=== PATIENT | male | born 1940 | race Caucasian/White ===

== ENCOUNTER 2024-08-09 12:59 | Outpatient (AMB) | payer MEDICARE, OTHER, SELFPAY ==
--- NOTE | 2024-08-09 13:05 | MHC.OFFVIS ---
Intake Visit Reasons: urinary frequency/ history of kidney stones Intake Note: New patient Presents for Urinary Frequency/Hx of kidney stones Any Urology Medication: Has tried Tamsulosin in the past Antibiotic Allergies: None Blood Thinners: Aspirin PVR:50ml Staking Press Operator Required: No Accompanied by: Self / Same As Patient Allergies No Known Allergies Allergy (Verified 08/09/24 13:56) Medication List - Last Reconciled 08/09/24 by MASSIMO Del Toro aspirin (Adult Aspirin Regimen) 81 mg PO DAILY metoprolol tartrate 25 mg PO DAILY nifedipine ER mg PO DAILY propranolol ER mg PO DAILY rosuvastatin mg PO valsartan mg PO DAILY HPI Comments Details: Festus is a 84-year-old male patient of Dr. Calvillo. He has a past medical history of nephrolithiasis, hyperlipidemia, hypertension, paroxysmal AFib, and dilatation of aorta. In discussion with the patient today he reports a longstanding history of nephrolithiasis since the age of 18. He discusses having had surgical intervention involving his kidney many years ago. He reports this being his right kidney. He discusses following up with his PCP and discussing intermittent ongoing lower urinary tract symptoms he has been experiencing at which time recommendations were made for urology referral for further assessment evaluation. Patient discusses noting bothersome urinary issues prior to his compliance with his CPAP. We discussed at length correlation of sleep apnea and lower urinary tract symptoms. He does report noting urinary dribbling. He does feel lower urinary tract symptoms have improved since he has been compliant with his CPAP machine. We discussed at length potential causes for lower urinary tract symptoms patient was experiencing as well as further treatment options and risks and benefits of these treatment options. In office urinalysis results reviewed with the patient today. PVR 50 mL. He denies hematuria, dysuria, foul smelling urine, flank pain, fever, and or chills. [facility] Medical History (Updated 08/09/24 @ 13:56 by MASSIMO Del Toro) History of kidney stones Mixed hyperlipidemia HTN (hypertension) Paroxysmal A-fib Dilatation of aorta Review of Systems Const Reports no additional complaints Eyes Reports no additional complaints ENT Reports no additional complaints Card Reports as per HPI Resp Reports no additional complaints GI Reports no additional complaints Reports as per HPI Musc Reports no additional complaints Neuro Reports no additional complaints Psych Reports no additional complaints Endo Reports no additional complaints Arie/Lymph Reports no additional complaints Aller/Immun Reports no additional complaints Physical Exam Const General: cooperative, healthy appearing, comfortable, no acute distress, well developed, alert and awake Orientation/consciousness: patient oriented x3 Limitations: no limitations HEENT Head: Yes normal to inspection, Yes normocephalic and Yes atraumatic Ears: hearing grossly normal bilaterally Eyes General: appearance normal, both eyes and all related structures Neck Neck: Yes normal visual inspection and Yes trachea midline Chest Chest palpation & inspection: normal inspection of the chest Resp Effort & Inspection: normal respiratory effort and able to speak in complete sentences Cardio Rate: regular rate GI Inspection: Yes normal to inspection General: Yes no CVA tenderness Back/Spine/Pelvis Back: no CVA tenderness Skin General skin exam: no rashes or lesions noted Neuro General: patient oriented x3 Extrem General: Yes normal to inspection Psych Appearance: grossly normal and well kempt Mental Status: mental status grossly normal Speech and movement: Normal speech and movement present and Clear speech present Affect: normal affect Attitude: cooperative Thought process: Normal thought process present Thought content: Normal thought content present Insight: Fair insight present (Psych) Judgement: Fair judgement present (Psych) Office Procedures Post Void Residual Post Residual Void Post Void Residual (PVR): 50 [id number]-Govx Void Residual by ultrasound Results AMB Urinalysis, Automated UA Leukoctes 0 Corbin/uL Last Edit by KAYODE Peter on 08/09/24 13:37 UA Nitrite Negative Last Edit by KAYODE Peter on 08/09/24 13:37 UA Urobilinogen 0.2 mg/dL Last Edit by KAYODE Peter on 08/09/24 13:37 UA Protein 15 mg/dL Last Edit by Ela Hare Travis on 08/09/24 13:37 UA pH 6.5 Last Edit by KAYODE Peter on 08/09/24 13:37 UA Blood 0 Braxton/uL Last Edit by KAYODE Peter on 08/09/24 13:37 UA Specific [place] 1.015 Last Edit by KAYODE Peter on 08/09/24 13:37 UA Ketone Negative Last Edit by KAYODE Peter on 08/09/24 13:37 UA Bilirubin 0 mg/dL Last Edit by KAYODE Peter on 08/09/24 13:37 UA Glucose 0 mg/dL Last Edit by KAYODE Peter on 08/09/24 13:37 Results Reviewed Results Reviewed: Laboratory Last Values Urine pH (Auto) 6.5 08/09/24 13:36 Specific [place] (Auto) 1.015 08/09/24 13:36 Urine Protein (Auto) 15 mg/dL 08/09/24 13:36 Glucose (UA)(Auto) 0 mg/dL 08/09/24 13:36 Urine Ketones (Auto) Negative 08/09/24 13:36 Urine Blood (Auto) 0 Braxton/uL 08/09/24 13:36 Urine Nitrite (Auto) Negative 08/09/24 13:36 Urine Bilirubin (Auto) 0 mg/dL 08/09/24 13:36 Urine Urobilinogen (Auto) 0.2 mg/dL 08/09/24 13:36 Leukocyte Esterase (Auto) 0 Corbin/uL 08/09/24 13:36 Assessment & Plan Assessment & Plan (1) Urinary dribbling: Code(s): N39.43 - Post-void dribbling Category: Medical (2) Urinary frequency: Code(s): R35.0 - Frequency of micturition Category: Medical (3) Nephrolithiasis: Code(s): N20.0 - Calculus of kidney Category: Medical Plan In office urinalysis results reviewed with the patient today; as noted above. PVR 50 mL. We discussed obtaining retroperitoneal ultrasound for further assessment evaluation. We discussed potential near future in office cystoscopy and or urodynamics for further assessment evaluation. We discussed at length potential causes for lower urinary tract symptoms patient was experiencing as well as further treatment options and risks and benefits of these treatment options. Will obtain PSA for further assessment evaluation. ARTI offered however deferred. Information provided for pelvic floor exercises to assist with urinary dribbling We discussed importance of adequate hydration relation to nephrolithiasis as well as overall health and well-being. Follow-up in 1-3 months with imaging and labs to be completed prior PVR at next office visit; or sooner with any issues, concerns, and or questions. Orders: Orders AMB Urinalysis Automated Today Z13.9 - Encounter for screening, unspecified AMB Post Void Residual by ultrasound Today Z87.898 - Personal history of other specified conditions US retroperitoneal comp Today N20.0 - Calculus of kidney, N39.43 - Post-void dribbling, R35.0 - Frequency of micturition Prostate Specific Antigen Today N40.0 - Benign prostatic hyperplasia without lower urinary tract symptoms Patient Instructions: The patient had an opportunity to ask questions regarding the treatment plan. All questions were answered. Physical exam, labs, and imaging were discussed and reviewed in detail. As well as risks, benefits, and discussion of treatment choices. No major barriers to understanding were identified. The patient expressed understanding and agreement with the above treatment plan. The patient was made aware they should contact our office by phone for worsening of their current condition, the appearance of new symptoms, or with any questions or concerns. Compliance is encouraged with any medications and follow up testing that is ordered. It is a privilege to be allowed the opportunity to participate in? your urological care.? Again, if you have any questions or concerns If you have any questions or concerns please do not hesitate to contact me. The office is [phone]. This note is constructed using voice recognition software. While every effort has been made to ensure accuracy drafter civil engineering errors may have been included. Yours sincerely, PETER Del Toro-SUSAN Coding Level of Care Code New Pt Level 3 (85473) Diagnoses Urinary dribbling N39.43 Urinary frequency R35.0 Nephrolithiasis N20.0 CPT Codes Post Residual Void - PVR CPT Code: 22994-Vivs Void Residual by ultrasound ([id number])
== END 2024-08-09 13:54 | disposition home or self-care (01) ==
LOC: HO.HUSH 12:59
PROVIDERS: PCP Family Medicine; Visit Provider Nurse Practitioner Family
DX: N39.43 Post-void dribbling (principal); R35.0 Frequency of micturition; N20.0 Calculus of kidney; Z13.9 Encounter for screening, unspecified
CPT/HCPCS: 99203

== ENCOUNTER → 2024-08-09 12:59 | Outpatient (BNVA) | payer MEDICARE, OTHER, SELFPAY | PROVIDERS: PCP Family Medicine; Visit Provider Nurse Practitioner Family | DX: N40.1 Benign prostatic hyperplasia with lower urinary tract symptoms (principal); N39.43 Post-void dribbling; R35.0 Frequency of micturition; N20.0 Calculus of kidney; G47.30 Sleep apnea, unspecified; Z99.89 Dependence on other enabling machines and devices; Z87.898 Personal history of other specified conditions | CPT/HCPCS: 51798; 81003; 99202 ==

== ENCOUNTER 2024-11-09 13:40 | Outpatient (AMB) | payer MEDICARE, OTHER, SELFPAY ==
--- NOTE | 2024-11-09 13:41 | MHC.OFFVIS ---
Intake Visit Reasons: 3 month follow up/ PSA/ US Intake Note: Patient Presents today for follow up on: Urinary dribbling, frequency, nephrolithiasis, ultrasound and lab results Imaging Completed: 09/27/24 PSA: 2.23 Urology Medication: none Antibiotic Allergies: None Blood Thinners: Aspirin PVR:33ml's Blender Machine Operator Required: No Accompanied by: Self / Same As Patient Allergies No Known Allergies Allergy (Verified 11/09/24 21:41) Medication List - Last Reconciled 11/09/24 by PETER Del Toro- aspirin (Adult Aspirin Regimen) 81 mg PO DAILY metoprolol tartrate 25 mg PO DAILY nifedipine ER mg PO DAILY propranolol ER mg PO DAILY rosuvastatin mg PO valsartan mg PO DAILY HPI Comments Details: Festus is a 84-year-old male patient of Dr. Calvillo. He has a past medical history of nephrolithiasis, hyperlipidemia, hypertension, paroxysmal AFib, and dilatation of aorta. He presents to the office today for follow-up. Of note, patient was seen approximately 3 months ago as a new patient for longstanding history of nephrolithiasis since the age of [age] years old at which time a renal ultrasound was ordered for further assessment evaluation. These results were reviewed and communicated with the patient today. 10/10 right kidney with multiple large stones largest stone or cluster of stones measuring 1.4 cm in the mid pole. There are 2 smaller stones measuring 9 mm in the lower pole in 6 mm in the mid pole 1.3 simple cyst in the lower pole. No renal masses or hydronephrosis noted on the right side. Left kidney with 2 cysts measuring 10 mm in the upper pole and 8 mm in the mid pole. No renal stones or hydronephrosis noted in the left kidney per radiology report. PSA 10/10 2.2. He discusses at length his longstanding history of nephrolithiasis requiring major surgery at the age of 18. We discussed surgical intervention versus surveillance monitoring given increase in stone burden. Risks and benefits of these interventions were discussed. Patient does report previously experiencing increased episodes of nocturia however since he has been compliant with CPAP he does feel improvement in nocturia. He does report noting urinary frequency stating he typically urinates 7-12 times per day. We discussed further treatment options and risks and benefits of these treatment options. In office urinalysis results reviewed with the patient today. PVR 33 mL. He denies hematuria, dysuria, foul smelling urine, flank pain, fever, and or chills. Discussion Notes I discussed with the patient the current state of his nephrolithiasis, noting the presence of large kidney stones in the right kidney and simple cysts on both kidneys. We evaluated management options, emphasizing the choices between ureteroscopy and extracorporeal shock wave lithotripsy for stone removal. I explained the risks and benefits of each, highlighting the less invasive nature of lithotripsy but acknowledging potential need for multiple treatments and the comprehensive nature of ureteroscopy. We agreed on continued observation of the stones given the patient's preference and current symptomatology. I also addressed the nocturia and frequent urination, suggesting trial dietary modifications and discussing the use of tamsulosin, given its prior benefit. Finally, I advised a future CT scan to better assess stone characteristics if intervention becomes necessary. Plan We will continue to monitor the patient's right kidney stones given their history of nephrolithiasis and current absence of symptoms, with a standing order for a CT scan if intervention becomes necessary. Treatment options for stone removal have been discussed comprehensively, and we will reassess if any changes in symptoms occur. For his urinary frequency and nocturia, dietary modifications will be trialed to reduce intake of caffeine, alcohol, spicy foods, tomato based products, and carbonated beverages. The use of tamsulosin may be revisited if conservative measures prove ineffective. Patient was informed about the impact of untreated sleep apnea on nocturnal urinary frequency and encouraged to adhere to CPAP therapy. Next follow-up is scheduled for a year unless the patient develops concerning symptoms warranting earlier evaluation. [facility] Medical History History of kidney stones Mixed hyperlipidemia HTN (hypertension) Paroxysmal A-fib Dilatation of aorta Review of Systems Const Reports no additional complaints Eyes Reports no additional complaints ENT Reports no additional complaints Card Reports as per HPI Resp Reports no additional complaints GI Reports no additional complaints Reports as per HPI Musc Reports no additional complaints Neuro Reports no additional complaints Psych Reports no additional complaints Endo Reports no additional complaints Arie/Lymph Reports no additional complaints Aller/Immun Reports no additional complaints Physical Exam Const General: cooperative, healthy appearing, comfortable, no acute distress, well developed, alert and awake Orientation/consciousness: patient oriented x3 Limitations: no limitations HEENT Head: Yes normal to inspection, Yes normocephalic and Yes atraumatic Ears: hearing grossly normal bilaterally Eyes General: appearance normal, both eyes and all related structures Neck Neck: Yes normal visual inspection and Yes trachea midline Chest Chest palpation & inspection: normal inspection of the chest Resp Effort & Inspection: normal respiratory effort and able to speak in complete sentences Cardio Rate: regular rate GI Inspection: Yes normal to inspection General: Yes no CVA tenderness Back/Spine/Pelvis Back: no CVA tenderness Skin General skin exam: no rashes or lesions noted Neuro General: patient oriented x3 Extrem General: Yes normal to inspection Psych Appearance: grossly normal and well kempt Mental Status: mental status grossly normal Speech and movement: Normal speech and movement present and Clear speech present Affect: normal affect Attitude: cooperative Thought process: Normal thought process present Thought content: Normal thought content present Insight: Fair insight present (Psych) Judgement: Fair judgement present (Psych) Office Procedures Post Void Residual Post Residual Void Post Void Residual (PVR): 33 [id number] Void Residual by ultrasound Results AMB Urinalysis, Automated UA Leukoctes 15 Corbin/uL Last Edit by [employer] on 11/09/24 14:12 UA Nitrite Last Edit by [employer] on 11/09/24 14:12 UA Urobilinogen 0.2 mg/dL Last Edit by [employer] on 11/09/24 14:12 UA Protein 15 mg/dL Last Edit by [employer] on 11/09/24 14:12 UA pH 6.5 Last Edit by [employer] on 11/09/24 14:12 UA Blood 10 Braxton/uL Last Edit by [employer] on 11/09/24 14:12 UA Specific [place] 1.010 Last Edit by [employer] on 11/09/24 14:12 UA Ketone Negative Last Edit by [employer] on 11/09/24 14:12 UA Bilirubin 0 mg/dL Last Edit by [employer] on 11/09/24 14:12 UA Glucose 0 mg/dL Last Edit by [employer] on 11/09/24 14:12 Results Reviewed Results Reviewed: Laboratory Last Values Urine pH (Auto) 6.5 11/09/24 14:08 Specific [place] (Auto) 1.010 11/09/24 14:08 Urine Protein (Auto) 15 mg/dL 11/09/24 14:08 Glucose (UA)(Auto) 0 mg/dL 11/09/24 14:08 Urine Ketones (Auto) Negative 11/09/24 14:08 Urine Blood (Auto) 10 Braxton/uL 11/09/24 14:08 Urine Bilirubin (Auto) 0 mg/dL 11/09/24 14:08 Urine Urobilinogen (Auto) 0.2 mg/dL 11/09/24 14:08 Leukocyte Esterase (Auto) 15 Corbin/uL 11/09/24 14:08 Assessment & Plan Assessment & Plan (1) Nephrolithiasis: Code(s): N20.0 - Calculus of kidney Category: Medical (2) Urinary dribbling: Code(s): N39.43 - Post-void dribbling Category: Medical (3) Urinary frequency: Code(s): R35.0 - Frequency of micturition Category: Medical Plan In office urinalysis results reviewed with the patient today; as noted above. PVR 33 mLs. Recent renal imaging results reviewed with the patient today; as noted above. Recent PSA results reviewed with the patient today; as noted above. We discussed further surgical intervention regarding increase in stone burden on right side we discussed obtaining CT KUB for further assessment evaluation We discussed ureteroscopy verses ESWL verses surveillance monitoring; risks and benefits of these interventions were discussed at length All questions were answered. We discussed bladder triggers/irritants. We discussed importance of pelvic floor exercises to assist with urinary dribbling. Will obtain CT KUB 1 year. Will obtain PSA in 1 year. Follow-up in 1 year with imaging, PSA, and PVR; or sooner with any issues, concerns, and or questions. Orders: Orders CT kidney stone 1 Year N20.0 - Calculus of kidney AMB Urinalysis Automated Today Z13.9 - Encounter for screening, unspecified AMB Post Void Residual by ultrasound Today N39.43 - Post-void dribbling Prostate Specific Antigen 1 Year N39.43 - Post-void dribbling, R35.0 - Frequency of micturition Patient Instructions: The patient had an opportunity to ask questions regarding the treatment plan. All questions were answered. Physical exam, labs, and imaging were discussed and reviewed in detail. As well as risks, benefits, and discussion of treatment choices. No major barriers to understanding were identified. The patient expressed understanding and agreement with the above treatment plan. The patient was made aware they should contact our office by phone for worsening of their current condition, the appearance of new symptoms, or with any questions or concerns. Compliance is encouraged with any medications and follow up testing that is ordered. It is a privilege to be allowed the opportunity to participate in? your urological care.? Again, if you have any questions or concerns If you have any questions or concerns please do not hesitate to contact me. The office is [phone]. This note is constructed using voice recognition software. While every effort has been made to ensure accuracy apricot washer errors may have been included. Yours sincerely, PETER Del Toro-SUSAN Coding Level of Care Code Est Pt Level 3 (17578) Complex EM visit Add On G2211 Diagnoses Nephrolithiasis N20.0 Urinary dribbling N39.43 Urinary frequency R35.0 CPT Codes Post Residual Void - PVR CPT Code: 57274-Gyau Void Residual by ultrasound ([id number])
== END 2024-11-09 14:34 | disposition home or self-care (01) ==
LOC: HO.HUSH 13:40
PROVIDERS: PCP Family Medicine; Visit Provider Nurse Practitioner Family
DX: N20.0 Calculus of kidney (principal); N39.43 Post-void dribbling; R35.0 Frequency of micturition; Z13.9 Encounter for screening, unspecified
CPT/HCPCS: 99213; G2211

== ENCOUNTER → 2024-11-09 13:40 | Outpatient (BNVA) | payer MEDICARE, OTHER, SELFPAY | PROVIDERS: PCP Family Medicine; Visit Provider Nurse Practitioner Family | DX: N20.0 Calculus of kidney (principal); N39.43 Post-void dribbling; R35.0 Frequency of micturition | CPT/HCPCS: 51798; 81003; 99212 ==